=== PATIENT | female | born 1955 | race Caucasian/White ===

== ENCOUNTER → 2017-01-31 | Outpatient (CLI) | payer MEDICAID ==
[~2017-01-31] MED LIST: ATENOLOL50 MG PO; CALCIUM PO; CEPHALEXIN500 MG PO; EVISTA60 MG PO; HYCODAN 1.5 MG480 ML PO; LASIX40 MG PO; LEVOTHYROXINE PO; LORTAB 5/500 501 TAB PO; NAPROSYN 500MG500 MG PO; NORCO 325 MG-51 TAB PO; NORVASC 5MG. TAB5 MG PO; POTASSIUM CHLO10 ME3 PO; RANITIDINE150 M1 PO; ROBAXIN-750750 MG PO; SYNTHROID0.025 MG PO; TRAMADOL 50MG T50 MG PO; ZOFRAN ODT8 MG PO
[2017-01-31 10:48] LABS: HEMOGLOBIN 14.7 g/dL (12.2-16.2); LYMPH # 2.1 K/mm3 (0.7-4.5); LYMPH % 32.2 % (10-50.0)
[2017-01-31 12:04] LABS: BUN 18 mg/dL (7-18)
[2017-01-31 12:08] LABS: GFR (ESTIMATED) 85 ML/MIN (59-)
== END ==
LOC: LAB 09:50
PROVIDERS: Internal Medicine Adolescent Medicine
DX: E78.2 Mixed hyperlipidemia (principal); E55.9 Vitamin D deficiency, unspecified; E03.9 Hypothyroidism, unspecified; I10 Essential (primary) hypertension